=== PATIENT | male | born 1975 | race Caucasian/White ===

== ENCOUNTER 2018-03-07 16:05 | Emergency (ER) | payer OTHER, BC ==
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
--- NOTE | 2018-03-07 17:39 | XRAY Preliminary Report ---
Exam: XR ELBOW 3 VIEW RT IMPRESSION: Soft tissue swelling, but no evidence of fracture. [facility] SITE ID: [id number]
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
--- NOTE | 2018-03-07 17:40 | XRAY Preliminary Report ---
Exam: XR RIBS W/PA CHEST RT IMPRESSION: Normal chest and rib radiography. [facility] SITE ID: [id number]
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
[2018-03-07 18:21] VITALS: BP 144/102
== END 2018-03-07 18:21 | disposition home or self-care (01) ==
LOC: EDSEX → ED 16:05
DX: S20.211A Contusion of right front wall of thorax, initial encounter (principal); S50.01XA Contusion of right elbow, initial encounter; S50.311A Abrasion of right elbow, initial encounter; S40.211A Abrasion of right shoulder, initial encounter; S70.211A Abrasion, right hip, initial encounter; V10.4XXA Pedal cycle driver injured in collision with pedestrian or animal in traffic accident, initial encounter; Y93.55 Activity, bike riding; Y92.488 Other paved roadways as the place of occurrence of the external cause; F17.200 Nicotine dependence, unspecified, uncomplicated
CPT/HCPCS: 99283